=== PATIENT | male | born 1990 | race Two or more races ===

== ENCOUNTER 2017-03-29 01:23 | Emergency (ER) | payer MEDICAID, OTHER ==
[~2017-03-29] VITALS: Ht 175.3 cm; Wt 95.3 kg
[2017-03-29 01:33] VITALS: BP 160/95
[2017-03-29] MEDS ORDERED: KETOROLAC TROMETH 60MG/2ML VIAL IM ONE (02:45)
== END 2017-03-29 03:53 | disposition home or self-care (01) ==
LOC: ER 01:26
DX: M54.5 Low back pain (principal); M54.2 Cervicalgia; I10 Essential (primary) hypertension; G80.9 Cerebral palsy, unspecified; V43.52XA Car driver injured in collision with other type car in traffic accident, initial encounter; Y93.89 Activity, other specified; Y92.89 Other specified places as the place of occurrence of the external cause; Y99.8 Other external cause status
CPT/HCPCS: 72125; 72131; 96372; 99284; J1885